=== PATIENT | male | born 1985 | race Caucasian/White ===

== ENCOUNTER 2018-09-14 16:02 | Emergency (ER) | payer MEDICAID, SELFPAY ==
[2018-09-14 16:03] VITALS: BP 201/122; PULSE 111; RESP 16; TEMP 37.3; O2SAT 100; BMI 37.0
--- NOTE | 2018-09-14 16:17 | CT_ITS ---
CT of the left elbow INDICATION: Elbow swelling TECHNIQUE: CT of the left elbow was performed in the axial plane following contrast administration followed by sagittal and coronal reconstructions. FINDINGS: Bony structures are well-mineralized. There is no evidence for acute fracture or dislocation.. No lytic or sclerotic bony lesions are evident. The joint space is well-maintained. There is a slightly heterogeneous solid nodule measuring 2.4 x 2 cm in the fat superior and medial to the medial humeral epicondyle in association with stranding in the subcutaneous fat. This most likely represents hematoma. Neoplasm or infectious process not excluded however there is no evidence for abscess. MRI would be helpful for further evaluation or perhaps sonographic guided biopsy if clinically warranted CT/Extremity Upper WITH Contrast IMPRESSION: Nonspecific soft tissue mass superior and medial to the medial humeral condyle measuring 2.4 x 2 cm most likely posttraumatic or possibly inflammatory due to stranding in the adjacent fat.. Electronically Signed: Osbaldo Almeida MD at 18:48 EST , Service support ,
[2018-09-14 16:44] LABS: Absolute Lymphocyte Count 2.95 X10^3/ul (0.83-4.51); Absolute Neutrophil Count 5.3 X10^3/uL (2.0-7.7); Basophil# 0.05 X10^3/uL; Basophil% 0.5 % (0-1); Eosinophil# 0.16 X10^3/uL; Eosinophils% 1.7 % (0-5); Hematocrit 43.1 % (40-54); Lymphocyte # 2.95 X10^3/ul (4.0); Lymphocyte % 31.6 % (19-41); Mean Corp Hgb Conc 34.8 g/gl (32-36); Mean Corpuscular Hgb 29.1 pg (27.0-32.0); Mean Corpuscular Volume 83.5 fL (80-94); Mean Platelet Vol. 8.8 fl (6.2-12.0); Monocyte# 0.82 X10^3/uL; Monocyte% 8.8 % (0-10); Neutrophil # 5.34 X10^3/uL (2.7-7.7); Neutrophil % 57.2 % (47-70); Platelet Count 228 K/mm3 (150-450); RBC Distribution Width CV 12.5 % (11.6-14.6); RBC Distribution Width SD 37.9 fl (35.1-43.9); Red Blood Count 5.16 M/mm3 (4.6-6.2); White Blood Count 9.3 K/mm3 (4.4-11.0)
[2018-09-14 16:47] LABS: POSITIVE COUNT NO; POSITIVE DIFFERENTIAL NO; POSITIVE MORPHOLOGY NO
[2018-09-14 16:57] LABS: Anion Gap 8 (5-15); BUN 15 mg/dL (7-18); BUN/Creat Ratio 14.4 RATIO (10-20); Calcium,Total 8.7 mg/dL (8.5-10.1); Chloride 106 mmol/L (98-107); Creatinine, Serum 1.04 mg/dL (0.70-1.30); EST Glomerular Filtration Rate 87 mL/min (>60); Est Glom Filt Rate - Afr Amer 105 mL/min (>60); Estimated Creatinine Clearance 93.57 ml/min; Glucose 98 mg/dL (74-106); Potassium 3.5 mmol/L (3.5-5.1); Sodium Level 141 mmol/L (136-145)
[2018-09-14 16:59] LABS: D-Dimer Quantitative (DVT/PE) 0.43 FEU/ug/m (0.27-0.49)
[2018-09-14 18:02] VITALS: BP 173/107; PULSE 118; RESP 18; O2SAT 99
--- NOTE | 2018-09-14 18:07 | ED.VISSUMM ---
- ER Visit Summary Date of Service: 09/14/18 Chief Complaint: [Left arm swelling] History of Present Illness: The patient is a 33 M [presents to the emergency department complaint of swelling to his left arm that he noticed yesterday. Patient denies any trauma. He denies any fever. Denies any chest pain or shortness of breath. He denies any numbness or tingling in extremity. Patient denies recent travel or surgery. Patient has not had swelling like this before.] Physical Examination: [HEENT-PERRLA, EOMI. Cranial nerves II through XII grossly intact. TMs clear. Mucous membranes moist. No adenopathy. Cardiovascular-regular rate and rhythm without murmur or ectopy Lungs-clear to auscultation, chest wall stable without crepitus or subcu emphysema Abdomen-normoactive bowel sounds, soft, nontender, no rebound or rigidity, no peritoneal signs. Extremities-intact ?4, normal range of motion, normal pulses, atraumatic. Left arm-patient does have a soft tissue swelling noted to the medial aspect of the distal upper arm that slightly indurated and tender to palpation. No cellulitic changes noted. Patient has normal range of motion at the elbow that is painless. Neurovascular intact distally. Swelling measures about 6 cm x 8 cm] Test Results: [CBC with differential obtained was normal. D-dimer was normal. Chemistries were normal. CT scan of the upper extremity obtained to evaluate further showed a nonspecific mass measuring 2.4 x 2 cm likely posttraumatic versus inflammatory.] Emergency Department Course and Treatment: [Patient was given Keflex 500 mg p.o.] Treatment Plan: [Patient will be covered with Keflex in case this is a hematoma that could possibly be getting infected. Patient advised to return if increasing redness, fever, increased swelling, or condition should worsen anyway.] Disposition: [Discharged home in stable condition. Patient given referral to orthopedics talent acquisition sourcer for follow-up.] Impression: [Soft tissue mass left arm-etiology uncertain] This note was generated with [employer] dictation software. It may contain incorrect words, spelling, and punctuation that were not noted in review of the chart prior to signing ED Disposition - Plan for ED Patient: Chief Complaint: Upper Extremity Injury Referrals: Care Physician,No Primary [Primary Care Provider] -
--- NOTE | 2018-09-14 19:07 | ED.DEP ---
ED Disposition - Plan for ED Patient: Chief Complaint: Upper Extremity Injury Instructions: ED Hematoma Prescriptions: Cephalexin [Keflex] 500 mg PO Q6 #40 cap Referrals: Care Physician,No Primary [Primary Care Provider] - Venu Mccormick MD [STAFF PHYSICIAN] - 5-7 Days
[2018-09-14] MEDS: Cephalexin 250 MG Capsule 500 MG PO (19:16)
[2018-09-14 19:17] VITALS: BP 166/100; PULSE 103; RESP 17; O2SAT 96
--- OUTSIDE RECORDS SUMMARY | 2018-12-17 13:39 | XMS RPT_ITS ---
:1985 Author Organization [facility] Care Team Providers Name Role Phone Sully Wylie Attending Unavailable Primay Care Physicia, No Primary Care Unavailable PROBLEMS PROBLEMS No Problem Records FoundPROCEDURES PROCEDURES No Procedure Records FoundRESULTS RESULTS EMERGENCY DEPARTMENT Observed: 09/14/2018 Status: F Source: [place] SUMMARY 11:21 PM [facility] [place] [facility] Medical Records Department [address] [place] [address] Emergency Department Summary 09/14/18 1807 MR#: [id number] Acct: [id number] Name: ALYSE WHITTAKER Rep #: [id number] : 1985 33 From: Sully Wylie DO PCP: Care Physician, No Primary Status: DEP ER - ER Visit Summary Date of Service: 09/14/18 Chief Complaint: [Left arm swelling] History of Present Illness: The patient is a 33 M [presents to the emergency department complaint of swelling to his left arm that he noticed yesterday. Patient denies any trauma. He denies any fever. Denies any chest pain or shortness of breath. He denies any numbness or tingling in extremity. Patient denies recent travel or surgery. Patient has not had swelling like this before.] Physical Examination: [HEENT-PERRLA, EOMI. Cranial nerves II through XII grossly intact. TMs clear. Mucous membranes moist. No adenopathy. Cardiovascular-regular rate and rhythm without murmur or ectopy Lungs-clear to auscultation, chest wall stable without crepitus or subcu emphysema Abdomen-normoactive bowel sounds, soft, nontender, no rebound or rigidity, no peritoneal signs. Extremities-intact 4, normal range of motion, normal pulses, atraumatic. Left arm-patient does have a soft tissue swelling noted to the medial aspect of the distal upper arm that slightly indurated and tender to palpation. No cellulitic changes noted. Patient has normal range of motion at the elbow that is painless. Neurovascular intact distally. Swelling measures about 6 cm x 8 cm] Test Results: [CBC with differential obtained was normal. D-dimer was normal. Chemistries were normal. CT scan of the upper extremity obtained to evaluate further showed a nonspecific mass measuring 2.4 x 2 cm likely posttraumatic versus inflammatory.] Emergency Department Course and Treatment: [Patient was given Keflex 500 mg p.o.] Treatment Plan: [Patient will be covered with Keflex in case this is a hematoma that could possibly be getting infected. Patient advised to return if increasing redness, fever, increased swelling, or condition should worsen anyway.] Disposition: [Discharged home in stable condition. Patient given referral to orthopedics chief of safety and protection for follow-up.] Impression: [Soft tissue mass left arm-etiology uncertain] This note was generated with [employer] dictation software. It may contain incorrect words, spelling, and punctuation that were not noted in review of the chart prior to signing ED Disposition - Plan for ED Patient: Chief Complaint: Upper Extremity Injury Referrals: Care Physician,No Primary [Primary Care Provider] - What to do if you have Problems For any increased pain, shortness of breath, bleeding, nausea or vomiting, chest pain, or any unexpected problems, contact your Primary Care Provider. Call [facility] ([phone]) or report to the closest Emergency Room. Call 911 if necessary. 09/14/18 2321 <Electronically signed by Sully Wylie DO> Date Sully Wylie DO Cosigner Signature (If Indicated): Date CC: No Primary Care Physician DISCHARGE INSTRUCTION Observed: 09/14/2018 Status: F Source: [place] 7:08 PM [facility] [place] [facility] Medical Records Department [address] [place] [address] Discharge Instruction 09/14/181906 MR#: [id number] Acct: [id number] Name: ALYSE WHITTAKER Rep #: [id number] : 1985 33 From: Sully Wylie DO PCP: Care Physician, No Primary Status: REG ER ED Disposition - Plan for ED Patient: Chief Complaint: Upper Extremity Injury Instructions: ED Hematoma Prescriptions: Cephalexin [Keflex] 500 mg PO Q6 #40 cap Referrals: Care Physician,No Primary [Primary Care Provider] - Venu Mccormick MD [STAFF PHYSICIAN] - 5-7 Days What to do if you have Problems For any increased pain, shortness of breath, bleeding, nausea or vomiting, chest pain, or any unexpected problems, contact your Primary Care Provider. Call [facility] ([phone]) or report to the closest Emergency Room. Call 911 if necessary. 09/14/181907 <Electronically signed by Sully Wylie DO> Date Sully Wylie DO Cosigner Signature (If Indicated): Date CC: No Primary Care Physician CBC W/DIFF, AUTOMATED Collected: 09/14/2018 Status: F Source: [place] 4:35 PM [facility] [place] TYPE CODE TESTS RESULT OUT OF RANGE REFERENCE UNITS LAB L100.1000 4.4-11.0 K/mm3 Normal WBC 9.3 LAB L100.1200 4.6-6.2 M/mm3 Normal RBC 5.16 LAB L100.1300 13.0-16.5 g/dl Normal HGB 15.0 LAB L100.1400 40-54 % Normal HCT 43.1 LAB L100.1500 80-94 fL Normal MCV 83.5 LAB L100.1600 27.0-32.0 pg Normal MCH 29.1 LAB L100.1700 32-36 g/gl Normal MCHC 34.8 LAB L100.1810 11.6-14.6 % Normal RDW CV 12.5 LAB L100.1820 35.1-43.9 fl Normal RDW SD 37.9 LAB L100.1900 150-450 K/mm3 Normal PLT 228 LAB L100.2000 6.2-12.0 fl Normal MPV 8.8 LAB L100.2100 47-70 % Normal NEUT% 57.2 LAB L100.2200 19-41 % Normal LY% 31.6 LAB L100.2300 0-10 % Normal MONO% 8.8 LAB L100.2400 0-5 % Normal EO% 1.7 LAB L100.2500 0-1 % Normal BASO% 0.5 LAB L100.2550 0.0-0.9 % Normal IM GRAN % 0.200 Result Comment: IG% - Immature Granulocytes (promyelocytes, myelocytes and metamyelocytes) > 1% indicates that a LEFT SHIFT is Present. LAB L100.2620 2.0-7.7 X10 3/uL Normal Absolute Neut 5.3 LAB L100.2720 0.83-4.51 X10 3/ul Normal Absolute Lymph 2.95 Performed By: #### L100.0100 #### [facility] [address] [place], [address] BASIC METABOLIC Collected: 09/14/2018 Status: F Source: [place] PROFILE ([facility]) 4:35 PM [facility] [place] TYPE CODE TESTS RESULT OUT OF RANGE REFERENCE UNITS LAB L501.0100 74-106 mg/dL Normal GLU 98 Result Comment: Please note revised GLUCOSE reference range effective 2017. LAB L501.1000 7-18 mg/dL Normal BUN 15 LAB L501.1100 0.70-1.30 mg/dL Normal CREAT,SERUM 1.04 Result Comment: The validity of the calculated GFR AND GFRAA in patients over 70 years has not been determined. Clinical correlation is essential. LAB L501.1110 >60 mL/min Normal EST GFR 87 Result Comment: Non- GFR Calc LAB L501.1115 >60 mL/min Normal EST GFR - AA 105 Result Comment: GFR Calc LAB L501.1255 ml/min Normal Estimated CRCL 93.57 LAB L501.1300 10-20 RATIO Normal BUN/CRE 14.4 LAB L501.2200 8.5-10 mg/dL Normal .1 CA 8.7 LAB L501.5300 136-14 mmol/L Normal 5 NA 141 LAB L501.5600 3.5-5. mmol/L Normal 1 K 3.5 LAB L501.5900 98-107 mmol/L Normal CL 106 LAB L501.6100 21.0-3 mmol/L Normal 2.0 CO2 27.0 LAB L501.6200 5-15 Normal GAP 8 Performed By: #### L500.2500 #### [facility] [address] [place], [address] D-DIMER QUANTITATIVE Collected: 09/14/2018 Status: F Source: [place] (DVT/PE) 4:35 PM [facility] [place] TYPE CODE TESTS RESULT OUT OF RANGE REFERENCE UNITS LAB L300.8000 0.27-0.49 FEU/ug/m Normal D-DIMER 0.43 QUANT Result Comment: NORMAL D-Dimer level (<0.50) indicates no DVT or PE. Performed By: #### L300.8000 #### [facility] [address] [place], [address] EXTREMITY UPPER WITH Observed: 09/14/2018 Status: F Source: [place] CONTRAST 4:18 PM [facility] [place] Imaging Services [address] [place] [id number] Extremity Upper WITH Contrast MR#: [id number] Acct: [id number] Name: ALYSE WHITTAKER Rep #: [id number] : 1985 M 33 From: Osbaldo Almeida MD PCP: Care Physician, No Primary Status: REG ER Study: Extremity Upper WITH Contrast Date of Exam: 09/14/18 Exam# [id number] Ordering Dr: Sully Wylie DO CT of the left elbow INDICATION: Elbow swelling TECHNIQUE: CT of the left elbow was performed in the axial plane following contrast administration followed by sagittal and coronal reconstructions. FINDINGS: Bony structures are well-mineralized. There is no evidence for acute fracture or dislocation.. No lytic or sclerotic bony lesions are evident. The joint space is well-maintained. There is a slightly heterogeneous solid nodule measuring 2.4 x 2 cm in the fat superior and medial to the medial humeral epicondyle in association with stranding in the subcutaneous fat. This most likely represents hematoma. Neoplasm or infectious process not excluded however there is no evidence for abscess. MRI would be helpful for further evaluation or perhaps sonographic guided biopsy if clinically warranted CT/Extremity Upper WITH Contrast IMPRESSION: Nonspecific soft tissue mass superior and medial to the medial humeral condyle measuring 2.4 x 2 cm most likely posttraumatic or possibly inflammatory due to stranding in the adjacent fat.. Electronically Signed: Osbaldo Almeida MD at 18:48 EST , Service support , CC: No Primary Care Physician; Sully Wylie DO Family Life Educator: Signed ALLERGIES ALLERGIES DATE TYPE / CODE NAME / CODE REACTION SEVERITY SOURCE 09/14/2018 Drug amoxicillin/ Hives Unknown [place] [facility] Allergy/4160 [id number]([facility] [address](SNOMED XNORM) Repository CT) ENCOUNTERS ENCOUNTERS ADMIT/DISCHARGE ACCOUNT ADMITTING ENCOUNTER LOCATION SOURCE NUMBER CLASS 09/14/2018/ [id number] Emergency Leda Leda 8 [facility] ing:ED Repository PAYERS PAYERS ENCOUNTER GUARANTOR PAYER SUBSCRIBER SOURCE 09/14/2018 ALYSE S Primary ALYSE S Leda [id number] [facility] Number: [id number] [id number] Repository [address]: [phone]) Date:2018-09-14P O [phone] () [address]ATTN: [place] [address]DH: 09/14/2018 Secondary NOT GIVENUNK Leda Insurance:SELF PAY [facility] Number: Effective Repository Date:2018-09-14
== END 2018-09-14 19:20 | disposition home or self-care (01) ==
LOC: ED 16:22
PROVIDERS: Emergency Provider Emergency Medicine
DX: R22.32 Localized swelling, mass and lump, left upper limb (principal)
CPT/HCPCS: 73201; 80048; 85025; 85379; 99284; Q9967; A4216

== ENCOUNTER 2019-12-28 00:06 | Emergency (ER) | payer MEDICAID, SELFPAY ==
[2019-12-28 00:06] VITALS: BP 207/122; PULSE 115; RESP 18; TEMP 36.8; O2SAT 99; BMI 41.0
--- NOTE | 2019-12-28 00:23 | RAD_ITS ---
HISTORY: PT C/O MID-STERNAL CHEST PAIN 4 DAYS AGO AND TONIGHT C/O L SCAPULA PAIN. DENIES INJURY, SOB,NASUEA ADDITIONAL HISTORY: None provided. TECHNIQUE: Frontal chest radiograph. Number of images including paperwork: 1 COMPARISON: None FINDINGS: LUNGS AND PLEURA: No consolidation, mass or pleural effusion. CARDIAC SILHOUETTE: Unremarkable. MEDIASTINUM AND BREANNA: Unremarkable. UPPER ABDOMEN: Unremarkable. SKELETON AND SOFT TISSUES: No acute findings. OTHER DEVICES AND HARDWARE: None. RAD/Chest 1 View (Portable) IMPRESSION: No acute cardiopulmonary abnormality. at 0052 Reported and signed by: Annie Tello MD Electronically Signed: Annie Tello MD at 0:52 EDT Tel , Service support ,
--- NOTE | 2019-12-28 00:23 | EKG12_ITS ---
Test Reason : HYPERTENSION Blood Pressure : / mmHG Vent. Rate : 120 BPM Atrial Rate : 120 BPM P-R Int : 164 ms QRS Dur : 106 ms QT Int : 304 ms P-R-T Axes : 039 -11 001 degrees QTc Int : 429 ms Sinus tachycardia Otherwise normal ECG Confirmed by RODOLFO ANTHONY, MERLINE ([id number]), deputy editor in chief SWETHA CANNON ([id number]) on 12/28/2019 1:43:19 PM Referred By: ANA Confirmed By:MERLINE REYNOLDS MD
[2019-12-28] MEDS: 0.9% Normal Saline 1,000 ML 1000 ML IV (00:36)
[2019-12-28 00:45] LABS: Absolute Lymphocyte Count 4.08 X10^3/uL (0.83-4.51); Absolute Neutrophil Count 3.7 X10^3/uL (2.0-7.7); Basophil# 0.06 X10^3/uL; Basophil% 0.7 % (0-1); Eosinophil# 0.39 X10^3/uL; Eosinophils% 4.2 % (0-5); Hematocrit 42.2 % (40-54); Hemoglobin 14.2 g/dL (13.0-16.5); Lymphocyte # 4.08 X10^3/ul (4.0); Lymphocyte % 44.4 % (19-41); Mean Corp Hgb Conc 33.6 g/dL (32-36); Mean Corpuscular Hgb 28.1 pg (27.0-32.0); Mean Corpuscular Volume 83.4 fL (80-94); Mean Platelet Vol. 9.1 fl (6.2-12.0); Monocyte# 0.97 X10^3/uL; Monocyte% 10.6 % (0-10); NRBC Flagged by Analyzer 0 % (0-5); Neutrophil # 3.65 X10^3/uL (2.7-7.7); Neutrophil % 39.8 % (47-70); Platelet Count 293 K/mm3 (150-450); RBC Distribution Width CV 12.7 % (11.6-14.6); RBC Distribution Width SD 38.2 fl (35.1-43.9); Red Blood Count 5.06 M/mm3 (4.6-6.2); White Blood Count 9.2 K/mm3 (4.4-11.0)
[2019-12-28 00:50] VITALS: BP 167/117; PULSE 110; RESP 20; O2SAT 98
[2019-12-28 01:08] LABS: Anion Gap 5 (5-15); BUN 10 mg/dL (7-18); BUN/Creat Ratio 8.2 RATIO (10-20); Calcium,Total 9.2 mg/dL (8.5-10.1); Chloride 107 mmol/L (98-107); Creatinine, Serum 1.22 mg/dL (0.70-1.30); EST Glomerular Filtration Rate 72 mL/min (>60); Est Glom Filt Rate - Afr Amer 87 mL/min (>60); Estimated Creatinine Clearance 79.01 ml/min; Glucose 118 mg/dL (74-106); Potassium 3.5 mmol/L (3.5-5.1); Sodium Level 141 mmol/L (136-145); Thyroid Stim Hormone (TSH) 2.47 uIU/mL (0.358-3.74)
[2019-12-28 01:12] VITALS: BP 181/111; PULSE 104; RESP 22; O2SAT 97
--- NOTE | 2019-12-28 01:41 | ED.DCSUM_ITS ---
- ER Visit Summary Date of Service: 12/28/19 Chief Complaint: Chest pain History of Present Illness: The patient is a 34 M with no primary care physician. He reports his chest pain that began 4 days ago. It is an intermittent sharp pain that lasts minutes at a time. It is 10 of 10 at worst and 1 out of 10 currently. Is worsened by exertion, breathing, or movement of his left arm. Is relieved by remaining still. He reports when the pain is severe it does make him short of breath. He denies any nausea, vomiting, or diaphoresis. No recent injury. No fall, MVA, or change in activity. No personal or family history of DVT. No recent travel. No ankle swelling or calf pain. Physical Examination: Vitals: Stable. Afebrile. General: Well-nourished and well-developed. Head: Normocephalic atraumatic. Neck: Supple, no lymphadenopathy. No JVD. Nontender. Cardiovascular: Tachycardic regular rhythm. No murmurs. Respiratory: No respiratory distress. Clear to auscultation bilaterally. Abdominal: Soft, nontender, nondistended, normal bowel sounds. No guarding, rebound, or peritoneal signs. Back: Nontender. Extremities: Nontender, no edema. Skin: Normal color, no rash. Neurologic: Alert and oriented ?3. Cranial nerves II through XII are intact. Normal strength and sensation. Psych: Normal affect. Test Results: EKG is sinus tach at [address] changes. Troponin is negative. D-dimer is negative. Chem-7 is marked for glucose 118. CBC is marked for segmented phase of 40, lymphocytes of 44, monocytes of 11. Clinical Impression(s) from Imaging Studies Chest X-Ray 12/28/19 00:23 IMPRESSION: No acute cardiopulmonary abnormality. at 0052 Reported and signed by: Annie Tello MD Electronically Signed: Annie Tello MD at 0:52 EDT Tel , Service support , Emergency Department Course and Treatment: Patient refused pain medications. He is resting comfortably. His blood pressure has remained elevated while he is here. He was given a dose of lisinopril p.o. Treatment Plan: Patient will be discharged on 10 mg of lisinopril. Instructed to follow-up with Dr. Vitaly Hirsch in 1 week for another exam. Return to the emergency department for any worsening symptoms. Disposition: To home in improved and stable condition. Impression: 1. Atypical chest pain. 2. Hypertension. This note was generated with [employer] dictation software. It may contain incorrect words, spelling, and punctuation that were not noted in review of the chart prior to signing ED Disposition - Plan for ED Patient: Instructions: ED Chest Pain Atypical Unkn Cause, ED Hypertension New Begin Treatment Prescriptions: Lisinopril [Zestril] 10 mg PO DAILY #30 tablet Referrals: Vitaly Kramer MD [STAFF PHYSICIAN] - 1 Week
[2019-12-28 01:45] VITALS: BP 172/125; PULSE 96; RESP 20; O2SAT 95
[2019-12-28] MEDS: Lisinopril 10 MG Tablet PO (01:56)
== END 2019-12-28 02:01 | disposition home or self-care (01) ==
LOC: ED 00:44
PROVIDERS: Emergency Provider Emergency Medicine
DX: R07.89 Other chest pain (principal); I10 Essential (primary) hypertension; Z87.891 Personal history of nicotine dependence; Z79.899 Other long term (current) drug therapy
CPT/HCPCS: 71045; 71275; 80048; 84443; 84484; 85025; 85379; 93005; 96360; 96361; 96374; 99284; 99285; J7030; Q9967; A4216

== ENCOUNTER 2019-12-28 04:47 | Emergency (ER) | payer MEDICAID, SELFPAY ==
[2019-12-28 00:06] VITALS: BMI 41.0
[2019-12-28 04:48] VITALS: BP 169/115; PULSE 108; RESP 20; TEMP 36.8; O2SAT 98; BMI 41.3
--- NOTE | 2019-12-28 04:49 | EKG12_ITS ---
Test Reason : CP Blood Pressure : / mmHG Vent. Rate : 094 BPM Atrial Rate : 094 BPM P-R Int : 172 ms QRS Dur : 108 ms QT Int : 350 ms P-R-T Axes : 036 -09 -01 degrees QTc Int : 437 ms Normal sinus rhythm Normal ECG Confirmed by RODOLFO ANTHONY, MERLINE ([id number]), acquisitions editor SWETHA CANNON ([id number]) on 12/28/2019 1:43:59 PM Referred By: DR PEREZ Confirmed By:MERLINE REYNOLDS MD
--- NOTE | 2019-12-28 04:53 | ED.RN ---
NO OLD EKGS IN MUSE
[2019-12-28] MEDS: 0.9% Normal Saline 1,000 ML 150 ML IV (05:00)
[2019-12-28] MEDS: Ketorolac 15 MG/ML Vial IV (05:01)
--- NOTE | 2019-12-28 05:16 | CT_ITS ---
STUDY: CTA CHEST REASON FOR EXAM: Male, 34 years old. CHEST PAIN X 4 DAYS BUT WORSE NOW,SEEN EARLIER FOR SAME AND SENT HOME RADIATION DOSAGE (If Supplied By Facility): CTDIvol = ( 12.67 ) mGy, DLP = ( 523.63 ) mGycm TECHNIQUE: The examination was performed with the intravenous administration of IV 100mL Isovue-370. Post-processing of the angiographic images was performed, with multiplanar reformation and 3D reconstruction. Individualized dose optimization techniques were used for this CT. COMPARISON: None. FINDINGS: Normal enhancement of the main pulmonary artery and right and left pulmonary arteries. Normal enhancement of the bilateral peripheral pulmonary arteries. There is no demonstrated pulmonary embolism. Normal thoracic aorta and visualized great vessels. There is no demonstrated aortic dissection. Normal heart and pericardium. Normal mediastinum. Normal hilar regions. Normal visualized trachea and bronchi. The lungs are well expanded. Normal pulmonary parenchyma. Minimal linear right middle lobe probable scarring or atelectasis. Normal pleura. Normal chest wall structures. Normal osseous structures. Normal visualized upper abdomen. CT/CTA Chest W/WO Contrast IMPRESSION: Negative CTA chest examination, without a demonstrated pulmonary embolism or arterial dissection. Electronically Signed: Alfonso Sebastian, at 6:14 EDT Tel , Service support ,
[2019-12-28 05:47] VITALS: BP 176/112; PULSE 93; RESP 15; O2SAT 97
[2019-12-28 06:00] VITALS: BP 178/113; PULSE 88; RESP 22; O2SAT 98
--- NOTE | 2019-12-28 06:28 | ED.DCSUM_ITS ---
- ER Visit Summary Date of Service: 12/28/19 Chief Complaint: Chest pain History of Present Illness: The patient is a 34 M with no primary care physician. He reports he has chest pain that began 4 days ago. Says sharp pain that is 10 out of 10 with movement and 2 out of 10 at rest. Is taken ibuprofen with minimal relief. Reports he has shortness of breath with this. He denies any associated nausea, vomiting, or diaphoresis. He denies any known injury. States that radiates into his back. Physical Examination: Vitals: Stable. Afebrile. General: Well-nourished and well-developed. Head: Normocephalic atraumatic. Neck: Supple, no lymphadenopathy. No JVD. Nontender. Cardiovascular: Regular rate and rhythm. No murmurs. Respiratory: No respiratory distress. Clear to auscultation bilaterally. Abdominal: Soft, nontender, nondistended, normal bowel sounds. No guarding, re bound, or peritoneal signs. Back: Nontender. Extremities: Nontender, no edema. Skin: Normal color, no rash. Neurologic: Alert and oriented ?3. Cranial nerves II through XII are intact. Normal strength and sensation. Psych: Normal affect. Test Results: EKG is sinus at [address] changes. Is unchanged from his prior EKG. He is labs from earlier tonight were not repeated. He did have a repeat troponin which is again negative. Given this is his second visit with pain that radiates into his back I obtained a CTA of the chest to rule out dissection that was negative. Emergency Department Course and Treatment: Patient was given a dose of Toradol IV. He is resting comfortably. He is asking for stronger pain medications. I do not think giving him opiate-based pain medications as indicated. Treatment Plan: Patient be discharged with symptomatic care. Instructed use Tylenol and/or ibuprofen for pain. Follow-up with Dr. Vitaly Hirsch in 1 week to have his blood pressure checked again. He is still instructed to get his prescription for lisinopril filled and begin taking this. Return to the emergency department for any worsening symptoms. Disposition: To home in improved and stable condition. Impression: 1. Atypical chest pain. 2. Hypertension. This note was generated with [employer] dictation software. It may contain incorrect words, spelling, and punctuation that were not noted in review of the chart prior to signing ED Disposition - Plan for ED Patient: Disposition: Home or Assisted Living Instructions: ED Chest Pain Atypical Unkn Cause Referrals: Vitaly Kramer MD [STAFF PHYSICIAN] - 1 Week
[2019-12-28 06:29] VITALS: BP 178/113; PULSE 88; RESP 15; O2SAT 98
== END 2019-12-28 06:40 | disposition home or self-care (01) ==
LOC: ED 04:57
PROVIDERS: Emergency Provider Emergency Medicine
DX: R07.89 Other chest pain (principal); I10 Essential (primary) hypertension; Z79.899 Other long term (current) drug therapy
CPT/HCPCS: 71275; 84484; 93005; 96361; 96374; 99284; Q9967

== ENCOUNTER → 2020-02-18 08:11 | Outpatient (CLI) | payer MEDICAID, SELFPAY ==
[2020-02-18 10:54] LABS: Anion Gap 7 (5-15); BUN 15 mg/dL (7-18); BUN/Creat Ratio 13.3 RATIO (10-20); Calcium,Total 9.1 mg/dL (8.5-10.1); Chloride 103 mmol/L (98-107); Cholesterol 206 mg/dL (200); Creatinine, Serum 1.13 mg/dL (0.70-1.30); EST Glomerular Filtration Rate 78 mL/min (>60); Est Glom Filt Rate - Afr Amer 95 mL/min (>60); Glucose 114 mg/dL (74-106); High Density Lipoprotein 29 mg/dL; Sodium Level 136 mmol/L (136-145); Triglycerides 498 mg/dL
== END ==
PROVIDERS: PCP Family Medicine; Referring Provider Family Medicine; Visit Provider Family Medicine
DX: I10 Essential (primary) hypertension (principal)
CPT/HCPCS: 36415; 80048; 80061

== ENCOUNTER → 2020-03-17 | Outpatient (CLI) | payer MEDICAID, SELFPAY ==
[2020-03-17 18:41] LABS: Anion Gap 7 (5-15); BUN 20 mg/dL (7-18); BUN/Creat Ratio 20.1 RATIO (10-20); Calcium,Total 9.1 mg/dL (8.5-10.1); Chloride 103 mmol/L (98-107); Cholesterol 170 mg/dL (200); EST Glomerular Filtration Rate 90 mL/min (>60); Est Glom Filt Rate - Afr Amer 109 mL/min (>60); Glucose 96 mg/dL (74-106); High Density Lipoprotein 29 mg/dL; Potassium 4.2 mmol/L (3.5-5.1); Sodium Level 137 mmol/L (136-145); Triglycerides 374 mg/dL; Very Low Density Lipoprotein 75 mg/dL (5-40)
== END | disposition home or self-care (01) ==
LOC: MFPLAB 15:41
PROVIDERS: PCP Family Medicine; Referring Provider Family Medicine; Visit Provider Family Medicine
DX: I10 Essential (primary) hypertension (principal)
CPT/HCPCS: 36415; 80048; 80061

== ENCOUNTER 2020-07-05 18:07 | Emergency (ER) | payer MEDICAID, SELFPAY ==
[2020-07-05 18:08] VITALS: BP 142/85; PULSE 98; RESP 16; TEMP 36.2; O2SAT 100; BMI 39.1
[2020-07-05 19:19] LABS: Bacteria 0 SEEN /hpf (None Seen); Mucous, Urine 0 SEEN /hpf (<or=2+); Red Blood Cells-Urine 0 SEEN /hpf (0-5); Squamous Epithelial Cells - UA 0 SEEN /hpf (0-5); White Blood Cells 0 SEEN /hpf (0-5)
[2020-07-05 19:32] LABS: Color, Urine Yellow (Yellow); Glucose, Dipstick Normal (Normal); Ketone-Dipstick Negative (Negative); Leukocyte Esterase-Dipstick Negative /ul (Negative); Nitrite-Dipstick Negative (Negative); Occult Blood-Urine Negative /ul (Negative); Protein-Dipstick Negative (Negative); Urine Bilirubin Dipstick Negative (Negative); Urine Clarity Sl. Cloudy (Clear); Urine Urobilinogen Normal (Normal); Urine pH 6.5 (5.0 - 8.0)
--- NOTE | 2020-07-05 19:40 | ED.VIS.GEN ---
History of Present Illness Chief Complaint: Flank Pain Informant: Patient Narrative: 35-year-old male with no significant past medical history presents with right-sided back pain. States this began approximately week and a half ago. States it happens to him once every few months. Describes it as aching and worse with movement. Denies any change in his urinary habits. Denies any nausea, vomiting, abdominal pain, constipation, diarrhea. Denies any fever or chills. No history of kidney stones. Denies any trauma. Past Medical History - Allergies and Home Meds Allergies/Adverse Reactions: Allergies amoxicillin Allergy (Verified 07/05/20 18:08) Hives Primary Care Physician: Vitaly Kramer MD [Primary Care Provider] - Past Medical History: None Surgical History: no surgical history Lives: With Family Smoking Status: Never smoker Alcohol: None Drugs: None Review of Systems General: Denies: Chills, Fever, Sweats Eyes: Denies: Visual changes - bilaterally, Diplopia ENT: Denies: Rhinorrhea, Sore throat Cardiovascular: Denies: Chest pain, Palpitations Respiratory: Denies: Dyspnea, Cough, Dyspnea on exertion Gastrointestinal: Denies: Abdominal pain, Nausea, Vomiting, Diarrhea, Melena, Hematochezia Genitourinary: Denies: Dysuria, Hematuria, Frequency Musculoskeletal: Reports: Back pain. Denies: Extremity Pain Skin: Denies: Rash, Wounds Neurological: Denies: Headache, Weakness, Numbness Physical Exam Vital Signs/Narrative: Vital Signs Temp Pulse Resp BP Pulse Ox 07/05/20 18:08 97.2 F L 98 16 142/85 H 100 General: Well nourished, Well developed, No Acute Distress Head: Normocephalic, Atraumatic Eyes: Perrl, EOMI ENT: Moist mucous membranes, No rhinorrhea Neck: Supple, Nontender Cardiovascular: Regular rate, Regular rhythm, No murmurs Respiratory: No distress, CTA bilaterally, Chest nontender Abdomen: Soft, Nontender, Nondistended, Normal bowel sounds Back: Normal Inspection, - - TTP in the right paraspinal musculature. No overlying skin changes. Extremities: Nontender, No edema Skin: Normal color, No rash Neurological: Alert, Oriented x3, Cranial nerves II-XII grossly intact, Normal Strength, Normal Sensation Psychological: Normal affect, Normal Mood Diagnostic/Tx/Re-eval Laboratory Data 07/05/20 19:00 Urine Color Yellow Urine Clarity Sl. Cloudy Urine pH 6.5 Ur Specific [place] 1.020 Urine Protein Negative Urine Glucose (UA) Normal Urine Ketones Negative Urine Occult Blood Negative Urine Nitrite Negative Urine Bilirubin Negative Urine Urobilinogen Normal Ur Leukocyte Esterase Negative Urine RBC 0 SEEN Urine WBC 0 SEEN Ur Squamous Epith Cells 0 SEEN Urine Bacteria 0 SEEN Urine Mucus 0 SEEN - Medical Decision Making Appears well nontoxic. No evidence of hematuria. Likely lumbar back strain. Patient was given intramuscular Toradol. Will be given naproxen and muscle relaxer for home. Asked to return for new or worsening symptoms. Patient agreeable and discharged home in stable condition. Impression: 1. Acute right lumbar back strain ED Disposition - Plan for ED Patient: Disposition: Home or Assisted Living Instructions: Relieving Tension in Your Back Prescriptions: cycloBENZAPRine HCl [Flexeril] 5 mg PO TID PRN #9 tab PRN Reason: Muscle Spasm Prescription Printed Naproxen [Naprosyn] 500 mg PO BID #14 tab Prescription Printed Referrals: Vitaly Kramer MD [Primary Care Provider] -
[2020-07-05] MEDS: Ketorolac 15 MG/ML Vial IM (19:48)
[2020-07-05 20:17] VITALS: RESP 17
--- NOTE | 2020-07-05 20:19 | ED.RN ---
shot time observed for greater than 15 minutes no reaction noted by this rn.
== END 2020-07-05 20:20 | disposition home or self-care (01) ==
PROVIDERS: Emergency Provider Emergency Medicine; PCP Family Medicine
DX: S39.012A Strain of muscle, fascia and tendon of lower back, initial encounter (principal); X58.XXXA Exposure to other specified factors, initial encounter; Y93.89 Activity, other specified; Y92.89 Other specified places as the place of occurrence of the external cause; Y99.8 Other external cause status
CPT/HCPCS: 81001; 96372; 99282

== ENCOUNTER → 2020-09-15 14:31 | Outpatient (CLI) | payer MEDICAID, SELFPAY ==
[2020-09-15 18:19] LABS: Anion Gap 6 (5-15); BUN 14 mg/dL (7-18); BUN/Creat Ratio 14.1 RATIO (10-20); Calcium,Total 8.9 mg/dL (8.5-10.1); Chloride 105 mmol/L (98-107); Cholesterol 133 mg/dL (200); Creatinine, Serum 0.99 mg/dL (0.70-1.30); EST Glomerular Filtration Rate 90 mL/min (>60); Est Glom Filt Rate - Afr Amer 109 mL/min (>60); Glucose 86 mg/dL (74-106); High Density Lipoprotein 32 mg/dL; Potassium 3.8 mmol/L (3.5-5.1); Sodium Level 138 mmol/L (136-145); Triglycerides 191 mg/dL; Very Low Density Lipoprotein 38 mg/dL (5-40)
== END ==
PROVIDERS: PCP Family Medicine; Referring Provider Family Medicine; Visit Provider Family Medicine
DX: I10 Essential (primary) hypertension (principal)
CPT/HCPCS: 36415; 80048; 80061

== ENCOUNTER 2023-12-17 18:08 | Day surgery (SDC) | payer BC, SELFPAY ==
[2023-12-17] VITALS (7 sets, daily range): BP systolic 142–170; BP diastolic 95–115; PULSE 67–116; RESP 16; TEMP 36.4–36.9; O2SAT 92–99; BMI 34.4
--- NOTE | 2023-12-17 20:40 | EDS_ITS ---
HPI HPI - GI History of Present Illness Chief Complaint: Foreign Body Detail of Chief Complaint: Esophageal food bolus obstruction Informant: patient Abdominal Pain/Flank Pain Onset: Yesterday Context: Sudden Onset Timing: Continuous Quality: Aching Location: - (Near the suprasternal notch) Current Severity: Mild Maximum Severity: Moderate Worsened by: - (Attempt to drink anything) Relieved by: Nothing Nausea/Vomiting/Emesis GI Symptom: Negative for Nausea or Vomiting Diarrhea/Melena/Hematochezia GI Symptom: Negative for Diarrhea, Melena or Hematochezia Associated Symptoms Associated Symptoms: Negative for Dysuria, Frequency, Hematuria or Urgency Narrative Narrative: Patient is a 38-year-old male. He presents because unable to swallow his own secretions or fluids. He had chicken yesterday morning.'s been stuck since then. Asked why he did not come in sooner he replied I this is half before but it is resolved after short period of time. There is a family history of esophageal problems on the mother side. He has history of hypertension. He has not anything to eat or drink since yesterday morning. He has not seen a GI specialist or required esophageal dilatation. Prior similar symptoms: Yes Recent Illness/Hospitalization: No PFSH PFSH Medical History (Updated 12/17/23 @ 21:34 by Twyla Holloway) Hypertension Home Medications lisinopril 10 mg tablet 10 mg PO DAILY #30 tabs 12/28/19 [Rx Last Taken Unknown] cyclobenzaprine 10 mg tablet 5 mg (1/2 x 10 mg) PO TID PRN Muscle Spasm #9 tabs 07/05/20 [Rx Last Taken Unknown] naproxen 500 mg tablet 500 mg PO BID #14 tabs 07/05/20 [Rx Last Taken Unknown] Allergy/AdvReac Type Severity Reaction Status Date / Time amoxicillin Allergy Hives Verified 12/17/23 18:09 Surgical History (Updated 12/17/23 @ 21:34 by Twyla Holloway) History of tonsillectomy Social History Smoking Status: Never smoker ROS ROS ED Constitutional Constitutional ED: Denies chills, fever(s), subjective or sweats ENT ENT ED: Denies ear pain, rhinorrhea or sore throat Cardiovascular Cardiovascular: Reports chest pain; Denies orthopnea, palpitations, paroxysmal nocturnal dyspnea or racing heartbeat Respiratory/Chest Respiratory/Chest: Reports other Details: Unable to drink anything due to obstruction ; Denies cough, dyspnea, dyspnea on exertion, orthopnea, paroxysmal nocturnal dyspnea or sputum Gastrointestinal Gastrointestinal: Denies abdominal pain, constipation, diarrhea or vomiting Genitourinary Genitourinary ED: Denies dysuria or hematuria Musculoskeletal Musculoskeletal: Denies arthralgias, back pain or myalgias Integumentary Denies rash Hematologic/Lymphatic Hematologic/Lymphatic: Denies easy bleeding or easy bruising EXAM Physical Exam Const Vital Signs: 12/17/23 18:09 12/17/23 20:08 12/17/23 20:08 Temperature 97.6 F L Temperature Source Oral Pulse Rate 115 H 67 Respiratory Rate 16 16 Respiratory Effort Normal Respiratory Pattern Normal Blood Pressure 170/115 H 150/99 H Blood Pressure Mean 133 116 Pulse Ox 97 99 Oxygen Delivery Method Room Air Room Air 12/17/23 21:35 12/17/23 22:09 Temperature 98.5 F Temperature Source Pulse Rate 69 116 H Respiratory Rate 16 16 Respiratory Effort Respiratory Pattern Blood Pressure 158/110 H 163/107 H Blood Pressure Mean 126 125 Pulse Ox 99 97 Oxygen Delivery Method Room Air Positive well nourished, well developed and obese General Appearance ED: well developed and NAD; Negative for pallor Nutritional Appearance: obese HEENT Reports TM's clear and dry mucous membranes normocephalic and atraumatic Tympanic Membrane ED: Yes TM's clear Mouth ED: Yes dry mucous membranes Mouth: dry mucous membranes Eyes PERRL and EOMs intact bilaterally Neck no lymphadenopathy, supple and no JVD Neck Narrative: Trachea is midline. There is no inspiratory expiratory stridor. Resp normal respiratory effort and clear to auscultation bilaterally Cardio regular rate, regular rhythm, S1 normal heart sound, S2 normal heart sound and no murmurs GI non-tender, non-distended and no masses Auscultation: normoactive bowel sounds Palpation: soft Back/Spine no CVA tenderness Extremity full ROM General Extremety ED: Negative for edema or tenderness General Extremity: Negative for edema Neuro CN's II-XII intact bilaterally and moves all extremities Sensorium / Orientation: alert Psych mental status grossly normal and thought process normal Skin no wounds General Skin Exam: Negative for jaundice or pallor MDM MDM MDM Narrative Medical decision making narrative: Patient's vitals are mycophenolate blood pressure and heart rate. Clinically he is dehydrated. IV was established. He was given a glass of water which he was not able to drink. Dr. Baptiste who is on-call for GI was paged since he will require EGD to alleviate his chicken food bolus obstruction. Lab Data Attestation: I reviewed the patient's lab results. Lab results narrative: Electrolyte panel was obtained since patient not had anything to eat or drink for greater than 24 hours. Creatinine is elevated from baseline at 1.36. Estimated GFR is 62. This is all likely due to dehydration. Labs: Laboratory Results - last 24 hr 12/17/23 19:47 Sodium 144 Potassium 3.6 Chloride 109 H Carbon Dioxide 26.0 Anion Gap 9 BUN 25 H Creatinine 1.36 H Estim Creat Clear Calc 82.00 Est GFR (MDRD) Af Amer 75 Est GFR (MDRD) Non-Af 62 BUN/Creatinine Ratio 18.4 Glucose 108 H Calcium 9.7 Management Discussion w/another healthcare provider: [employer] (Dr. Baptiste for food bolus obstructing the esophagus. Dr. Baptiste was made aware of patient's findings and will be in to see patient.) Treatment and Re-Evaluation :: Patient's stay was uneventful prior to going to Endo for EGD by Dr. 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
[2023-12-17] MEDS: 0.9% Normal Saline (1000mL) 1,000 ML 250 ML IV (21:36)
[2023-12-17 21:57] LABS: Anion Gap 9 (5-15); BUN 25 mg/dL (7-18); BUN/Creat Ratio 18.4 RATIO (10-20); Calcium,Total 9.7 mg/dL (8.5-10.1); Chloride 109 mmol/L (98-107); Creatinine, Serum 1.36 mg/dL (0.70-1.30); EST Glomerular Filtration Rate 62 mL/min (>60); Est Glom Filt Rate - Afr Amer 75 mL/min (>60); Glucose 108 mg/dL (74-106); Potassium 3.6 mmol/L (3.5-5.1); Sodium Level 144 mmol/L (136-145)
[2023-12-17] MEDS: 0.9% Normal Saline (1000mL) 1,000 ML 1000 ML IV (22:36)
--- NOTE | 2023-12-17 23:02 | HP.PCM_ITS ---
HPI - General General Date of Admission: 12/17/23 Date of Service: 12/17/23 Chief Complaint: esophageal foreign body HPI Narrative KATY WHITTAKER, is a 38 M who presents with trouble swallowing. He presents because unable to swallow his own secretions or fluids. He had chicken yesterday morning.'s been stuck since then. Asked why he did not come in sooner he replied I this is half before but it is resolved after short period of time. There is a family history of esophageal problems on the mother side. He has history of hypertension. He has not anything to eat or drink since yesterday morning. He has not seen a GI specialist or required esophageal dilatation. [facility] Medical History (Updated 12/17/23 @ 21:34 by Twyla Holloway) Hypertension Home Medications lisinopril 10 mg tablet 10 mg PO DAILY #30 tabs 12/28/19 [Rx Last Taken Unknown] cyclobenzaprine 10 mg tablet 5 mg (1/2 x 10 mg) PO TID PRN Muscle Spasm #9 tabs 07/05/20 [Rx Last Taken Unknown] naproxen 500 mg tablet 500 mg PO BID #14 tabs 07/05/20 [Rx Last Taken Unknown] Allergy/AdvReac Type Severity Reaction Status Date / Time amoxicillin Allergy Hives Verified 12/17/23 18:09 Surgical History (Updated 12/17/23 @ 21:34 by Twyla Holloway) History of tonsillectomy Social History Smoking Status: Never smoker ROS Review of Systems ROS Unobtainable: other Constitutional Constitutional: Denies fatigue, fever(s), poor appetite, weight gain or weight loss ENT HEENT: Denies mouth lesions Cardiovascular Cardiovascular: Denies abdominal bloating, abdominal edema or abdominal pain Respiratory/Chest Respiratory/Chest: Denies change in mental status, change in phlegm color, chest congestion or chest tightness Gastrointestinal Gastrointestinal: Denies belching, bloating, change in bowel habits, change in stool character, chewing difficulty, coffee ground emesis, constipation, cramping, diarrhea, dyspepsia, dysphagia, early satiety, excessive flatus, fecal incontinence, heartburn, hematemesis, hematochezia, hemorrhoids, loose stools, melena, nausea, odynophagia, rectal bleeding, tenesmus, vomiting or weight changes Genitourinary Genitourinary: Denies abdominal discomfort, burning urination or itching Musculoskeletal Musculoskeletal: Reports as per HPI; Denies muscle weakness or myalgias Integumentary Integumentary: Denies jaundice Neurologic Neurologic: Denies lack of coordination or weakness Psychiatric Psychiatric: Denies confusion, depression, memory loss, mood swings, paranoia or suicidal ideation Endocrine Endocrinology: Denies systems reviewed and no addt'l complaints, except as documented Hematologic/Lymphatic Hematologic/Lymphatic: Denies anemia, easy bleeding, easy bruising or lymphadenopathy Allergic/Immunologic Allergic/Immunologic: Denies systems reviewed and no addt'l complaints, except as documented Vital Signs Vital Signs Vital Signs: 12/17/23 18:09 12/17/23 20:08 12/17/23 20:08 Temperature 97.6 F L Temperature Source Oral Pulse Rate 115 H 67 Respiratory Rate 16 16 Respiratory Effort Normal Respiratory Pattern Normal Blood Pressure 170/115 H 150/99 H Blood Pressure Mean 133 116 Pulse Ox 97 99 Oxygen Delivery Method Room Air Room Air 12/17/23 21:35 12/17/23 22:09 Temperature 98.5 F Temperature Source Pulse Rate 69 116 H Respiratory Rate 16 16 Respiratory Effort Respiratory Pattern Blood Pressure 158/110 H 163/107 H Blood Pressure Mean 126 125 Pulse Ox 99 97 Oxygen Delivery Method Room Air Weight Weight: 219 lb 9.6 oz Body Mass Index (BMI) 34.4 Physical Exam Const alert General Appearance: cooperative Orientation / Consciousness: oriented to person HEENT hearing grossly normal bilaterally Head and Scalp: normal to inspection Face and Sinus: face symmetric Nose: external nose normal Mouth: oral and palatal mucosa normal Eyes conjunctivae normal General Eye: normal appearance of both eyes Neck full ROM General: normal visual inspection Lymph Lymphatic: no lymphadenopathy noted Chest inspection of chest normal and palpation of chest normal Chest: symmetrical chest wall rise Resp normal respiratory effort Effort and Inspection: able to speak in complete sentences Cardio regular rate GI non-distended Percussion: normal to percussion Rectal Exam: deferred Neuro Speech: speech normal Gait (Neuro): normal gait Results Lab / Micro Data 12/17/23 19:47 Labs: Laboratory Results - last 24 hr 12/17/23 19:47: Sodium 144, Potassium 3.6, Chloride 109 H, Carbon Dioxide 26.0, Anion Gap 9, BUN 25 H, Creatinine 1.36 H, Estim Creat Clear Calc 82.00, Est GFR (MDRD) Af Amer 75, Est GFR (MDRD) Non-Af 62, BUN/Creatinine Ratio 18.4, Glucose 108 H, Calcium 9.7 Assessment & Plan Assessment/Plan (1) Obstruction of esophagus due to food impaction: PLAN: Plan 38-year-old gentleman comes in with a food impaction. He will undergo an upper endoscopy with food impaction removal. He was explained alternatives, risk, benefits include not withstanding bleeding, infection, sepsis, perforation, need for emergent surgery . He will have an ASA of 2.
--- NOTE | 2023-12-17 23:05 | EGD_PTH ---
PATIENT: KATY WHITTAKER LOC: U#:[id number] AGE/SX: 38/M ROOM: RE12/17/[address]: Dr. Nehemiah Baptiste DO : 1985 BED: DIS: 12/18/2023 SPEC #: [id number] RECD: 12/18/23 08:40 STATUS: KIRIT REQ #: [id number] MAGGIE: 12/17/23 23:[address]: Nehemiah Baptiste DEPT: SURGICAL PATHOLOGY RECD BY: Kelly Sadler ENTERED: 12/18/23 10:03 SP TYPE: EGD BIOPSY OT DR: Dr. Vitaly Kramer MD Tissues: Esophagus, NOS Procedures: Special Stain Group II Special Stain Group I Surgery Specimen Level IV GMS Stain (control) Alcian Blue/PAS (control) HEADER OPERATION: EGD with removal of food bolus and biopsy PRE-OP DIAGNOSIS: Esophageal foreign body TISSUE SUBMITTED: Distal esophagus biopsy MICROSCOPIC DIAGNOSIS Distal esophagus, biopsy; Gastroesophageal junctional mucosa with ulceration and associated fibrinopurulent material, and early granulation. No evidence of goblet cell metaplasia. No evidence of fungal organisms. See comment. Nikolai 12/19/2023 COMMENT GMS stain with matched control was used in the evaluation of this case. Alcian blue/PAS stain with matched control supports the above diagnosis. MICROSCOPIC DESCRIPTION Slides are reviewed. GROSS DESCRIPTION Received in fixative is one container labeled with the patient's name and designated Distal esophagus. The specimen consists of multiple irregular fragments of light simon soft tissue that in aggregate measure 0.8 x 0.4 x 0.1 cm. The specimen is totally submitted in one cassette. Destiny 12/18/2023 TC:2 CPT: 87085,62924,42754
--- NOTE | 2023-12-17 23:46 | EX.PCM.PN.GI ---
Subjective Subjective Patient underwent an upper endoscopy. There is a problem with documentation on probation. He had a food bolus that was removed. He tolerated the procedure without any problems. Objective Data Objective Data Vital Signs: Vital Signs Temp Pulse Resp BP Pulse Ox O2 Del Method 98 F 110 H 16 153/95 H 92 Room Air 12/17/23 23:42 12/17/23 23:42 12/17/23 23:42 12/17/23 23:42 12/17/23 23:42 12/17/23 23:42 Oxygen Delivery Method Room Air Weight: 219 lb 9.6 oz Body Mass Index (BMI) 34.4 Intake & Output: Intake and Output for Last 24 Hours 12/15/23 12/16/23 12/17/23 23:59 23:59 23:59 Intake Total 233.33 / 233.33 Balance 233.33 / 233.33 Lab / Micro Data 12/17/23 19:47 Labs: Laboratory Results - last 24 hr 12/17/23 19:47: Sodium 144, Potassium 3.6, Chloride 109 H, Carbon Dioxide 26.0, Anion Gap 9, BUN 25 H, Creatinine 1.36 H, Estim Creat Clear Calc 82.00, Est GFR (MDRD) Af Amer 75, Est GFR (MDRD) Non-Af 62, BUN/Creatinine Ratio 18.4, Glucose 108 H, Calcium 9.7 Physical Exam Const alert General Appearance: cooperative Orientation / Consciousness: oriented to person HEENT hearing grossly normal bilaterally Head and Scalp: normal to inspection Face and Sinus: face symmetric Nose: external nose normal Mouth: oral and palatal mucosa normal Eyes conjunctivae normal General Eye: normal appearance of both eyes Neck full ROM General: normal visual inspection Lymph Lymphatic: no lymphadenopathy noted Chest inspection of chest normal and palpation of chest normal Chest: symmetrical chest wall rise Resp normal respiratory effort Effort and Inspection: able to speak in complete sentences Cardio regular rate GI non-distended Percussion: normal to percussion Rectal Exam: deferred Neuro Speech: speech normal Gait (Neuro): normal gait Assessment & Plan Assessment/Plan (1) Obstruction of esophagus due to food impaction: PLAN: He will be given Protonix IV x 1 and I will send in prescription for pantoprazole 40 mg p.o. twice daily to take for approximately 3 months and he will need a follow-up endoscopy with dilation.
--- NOTE | 2023-12-18 13:15 | OP.CCLET_ITS ---
12/18/2023 Vitaly Kramer MD [address] [id number] Re : Upper GI endoscopy procedure for [facility] Dear Dr. Kramer This procedure was performed on Monday, December 18, 2023. My impressions and recommendations are as follows: Impressions : - Food in the middle third of the esophagus. Removal was successful. - Severe Schatzki ring. Dilated. - LA Grade C reflux esophagitis with no bleeding. Biopsied. - Normal stomach. - Normal duodenal bulb. Recommendations : - Discharge patient to home. - Resume previous diet. - Use Protonix (pantoprazole) 40 mg PO BID for 3 months. - Continue present medications. My findings are described in the full procedure note, which is enclosed. If I can be of further assistance, please feel free to contact me at . Sincerely, Nehemiah Friend, 12/18/2023 1:14:38 PM This report has been signed electronically.
--- NOTE | 2023-12-18 13:15 | OP.EGD_ITS ---
Patient Name: Alfonso Mckinnon Procedure Date: 12/18/2023 1:12 PM Date of : 1985 Age: 38 Procedure: Upper GI endoscopy Indications: Dysphagia Providers: Nehemiah Baptiste DO Medicines: Monitored Anesthesia Care Patient Profile: This is a 38 year old male. Refer to note in patient chart for documentation of history and physical. Patient has symptoms of acute dysphagia. Complications: No immediate complications. Procedure: Pre-Anesthesia Assessment: - Prior to the procedure, a History and Physical was performed, and patient medications and allergies were reviewed. The patient is competent. The risks and benefits of the procedure and the sedation options and risks were discussed with the patient. All questions were answered and informed consent was obtained. Patient identification and proposed procedure were verified by the physician. Mental Status Examination: normal. Respiratory Examination: clear to auscultation. Prophylactic Antibiotics: The patient does not require prophylactic antibiotics. Prior Anticoagulants: The patient has taken no anticoagulant or antiplatelet agents. After reviewing the risks and benefits, the patient was deemed in satisfactory condition to undergo the procedure. The anesthesia plan was to use monitored anesthesia care (MAC). Immediately prior to administration of medications, the patient was re-assessed for adequacy to receive sedatives. The heart rate, respiratory rate, oxygen saturations, blood pressure, adequacy of pulmonary ventilation, and response to care were monitored throughout the procedure. The physical status of the patient was re-assessed after the procedure. After obtaining informed consent, the endoscope was passed under direct vision. Throughout the procedure, the patient's blood pressure, pulse, and oxygen saturations were monitored continuously. The gastroscope was introduced through the mouth, and advanced to the second part of duodenum. The upper GI endoscopy was accomplished without difficulty. The patient tolerated the procedure well. Findings: Food was found in the middle third of the esophagus. Removal was accomplished with a Crane net. Verification of patient identification for the specimen was done. Estimated blood loss was minimal. A severe Schatzki ring was found at the gastroesophageal junction. A guidewire was placed and the scope was withdrawn. Dilation was performed with a Savary dilator with no resistance at 51 Fr. The dilation site was examined and showed moderate improvement in luminal narrowing. Estimated blood loss was minimal. LA Grade C (one or more mucosal breaks continuous between tops of 2 or more mucosal folds, less than 75% circumference) esophagitis with no bleeding was found 37 to 40 cm from the incisors. Biopsies were taken with a cold forceps for histology. Verification of patient identification for the specimen was done. Estimated blood loss was minimal. The entire examined stomach was normal. The duodenal bulb was normal. Impression: - Food in the middle third of the esophagus. Removal was successful. - Severe Schatzki ring. Dilated. - LA Grade C reflux esophagitis with no bleeding. Biopsied. - Normal stomach. - Normal duodenal bulb. Recommendation: - Discharge patient to home. - Resume previous diet. - Use Protonix (pantoprazole) 40 mg PO BID for 3 months. - Continue present medications. Procedure Code(s): --- Professional --- 40074, Esophagogastroduodenoscopy, flexible, transoral; with removal of foreign body(s) 91346, 51, Esophagogastroduodenoscopy, flexible, transoral; with insertion of guide wire followed by passage of dilator(s) through esophagus over guide wire 84991, 59, Esophagogastroduodenoscopy, flexible, transoral; with biopsy, single or multiple CPT copyright 2021 [employer]. All rights reserved. The codes documented in this report are preliminary and upon char conveyor tender review may be revised to meet current compliance requirements. Nehemiah Baptiste DO 12/18/2023 1:14:38 PM This report has been signed electronically. Number of Addenda: 0 Note Initiated On: 12/18/2023 1:12 PM
== END 2023-12-18 00:02 | disposition home or self-care (01) ==
LOC: ED 22:39 → AC 23:12
PROVIDERS: Emergency Provider Emergency Medicine; PCP Family Medicine; Referring Provider Internal Medicine Gastroenterology; Visit Provider Internal Medicine Gastroenterology
PROC: 0DJ08ZZ Inspection of Upper Intestinal Tract, Via Natural or Artificial Opening Endoscopic (ICD-10-PCS; CPT 43235; principal; 2023-12-17 23:00)
DX: T18.128A Food in esophagus causing other injury, initial encounter (principal); E86.0 Dehydration; R00.0 Tachycardia, unspecified; K22.2 Esophageal obstruction; I10 Essential (primary) hypertension; E66.9 Obesity, unspecified; K21.00 Gastro-esophageal reflux disease with esophagitis, without bleeding; K22.10 Ulcer of esophagus without bleeding; W44.F3XA Food entering into or through a natural orifice, initial encounter; Z79.899 Other long term (current) drug therapy
CPT/HCPCS: 43247; 43248; 43239; 80048; 88305; 88312; 88313; 99285; J7030; A4216

== ENCOUNTER → 2024-07-29 | Outpatient (CLI) | payer BC, SELFPAY ==
[2024-07-29 15:44] LABS: Anion Gap 7 (5-15); BUN 15 mg/dL (7-18); BUN/Creat Ratio 12.5 RATIO (10-20); Calcium,Total 9.4 mg/dL (8.5-10.1); Chloride 102 mmol/L (98-107); Cholesterol 240 mg/dL (200); EST Glomerular Filtration Rate 71 mL/min (>60); Est Glom Filt Rate - Afr Amer 86 mL/min (>60); Glucose 92 mg/dL (74-106); High Density Lipoprotein 57 mg/dL; Potassium 3.9 mmol/L (3.5-5.1); Sodium Level 137 mmol/L (136-145); Triglycerides 98 mg/dL; Very Low Density Lipoprotein 20 mg/dL (5-40)
== END | disposition home or self-care (01) ==
LOC: MFPLAB 12:16
PROVIDERS: PCP Family Medicine; Referring Provider Family Medicine; Visit Provider Family Medicine
DX: I10 Essential (primary) hypertension (principal)
CPT/HCPCS: 36415; 80048; 80061

== ENCOUNTER → 2024-08-26 | Outpatient (CLI) | payer BC, SELFPAY ==
[2024-08-26 11:24] LABS: ALB/GLOB Ratio 1.4 RATIO (0.9-2.4); AST(SGOT) 41 U/L (15-37); Alanine Aminotransfer ALT/SGPT 59 U/L (16-61); Albumin, Serum 4.6 g/dL (3.2-5.0); Alkaline Phosphatase 80 U/L (45-117); Anion Gap 6 (5-15); BUN 12 mg/dL (7-18); BUN/Creat Ratio 10.4 RATIO (10-20); Calcium,Total 9.2 mg/dL (8.5-10.1); Chloride 105 mmol/L (98-107); Creatinine, Serum 1.15 mg/dL (0.70-1.30); EST Glomerular Filtration Rate 75 mL/min (>60); Est Glom Filt Rate - Afr Amer 90 mL/min (>60); Globulin 3.2 g/dL (2.2-4.2); Glucose 89 mg/dL (74-106); Protein, Total 7.8 g/dL (6.4-8.2); Sodium Level 136 mmol/L (136-145)
== END | disposition home or self-care (01) ==
LOC: MFPLAB 09:30
PROVIDERS: PCP Family Medicine; Visit Provider Family Medicine
DX: I10 Essential (primary) hypertension (principal)
CPT/HCPCS: 36415; 80053

== ENCOUNTER → 2025-02-24 | Outpatient (CLI) | payer BC, SELFPAY ==
[2025-02-24 13:07] LABS: Albumin, Serum 4.8 g/dL (3.5-5.0); BUN 13 mg/dL (4-19); BUN/Creat Ratio 11.7 RATIO (10-20); Creatinine, Serum 1.09 mg/dL (0.70-1.20); EST Glomerular Filtration Rate 88 (>60); Glucose 94 mg/dL (70-99); Protein, Total 7.3 g/dL (5.9-8.4)
[2025-02-24 13:08] LABS: ALB/GLOB Ratio 1.9 RATIO (0.9-2.4); AST(SGOT) 38 U/L (<=37); Alanine Aminotransfer ALT/SGPT 49 U/L (<=46); Alkaline Phosphatase 75 U/L (40-129); Anion Gap 12 (5-15); Calcium,Total 9.4 mg/dL (7.6-11.0); Carbon Dioxide 23.9 mmol/L (21.0-32.0); Chloride 104 mmol/L (98-108); Cholesterol 144 mg/dL (<=200); Globulin 2.5 g/dL (2.2-4.2); High Density Lipoprotein 37 mg/dL; Low Density Lipoprotein Calc. 79 mg/dL; Potassium 4.2 mmol/L (3.3-5.1); Sodium Level 139 mmol/L (133-145); Triglycerides 142 mg/dL; Very Low Density Lipoprotein 28 mg/dL (5-40); cholesterol:hdl ratio screen 3.93
== END | disposition home or self-care (01) ==
LOC: MFPLAB 08:26
PROVIDERS: PCP Family Medicine; Referring Provider Family Medicine; Visit Provider Family Medicine
DX: I10 Essential (primary) hypertension (principal)
CPT/HCPCS: 36415; 80053; 80061

== ENCOUNTER → 2025-08-23 | Outpatient (CLI) | payer BC, SELFPAY ==
[2025-08-23 11:22] LABS: AST(SGOT) 33 U/L (<=37); Alanine Aminotransfer ALT/SGPT 69 U/L (<=46); Albumin, Serum 4.5 g/dL (3.5-5.0); Alkaline Phosphatase 71 U/L (40-129); Anion Gap 10 (5-15); BUN 15 mg/dL (4-19); BUN/Creat Ratio 14.8 RATIO (10-20); Calcium,Total 9.2 mg/dL (7.6-11.0); Carbon Dioxide 24.8 mmol/L (21.0-32.0); Chloride 105 mmol/L (98-108); Cholesterol 154 mg/dL (<=200); Globulin 2.6 g/dL (2.2-4.2); Glucose 101 mg/dL (70-99); Low Density Lipoprotein Calc. 90 mg/dL; Potassium 4.0 mmol/L (3.3-5.1); Triglycerides 155 mg/dL; Very Low Density Lipoprotein 31 mg/dL (5-40); cholesterol:hdl ratio screen 4.17
== END | disposition home or self-care (01) ==
LOC: MFPLAB 08:49
PROVIDERS: PCP Family Medicine; Visit Provider Family Medicine
DX: E78.00 Pure hypercholesterolemia, unspecified (principal); I10 Essential (primary) hypertension
CPT/HCPCS: 36415; 80053; 80061